=== PATIENT | female | born 1940 | race Caucasian/White ===

== ENCOUNTER 2024-01-28 09:52 | Outpatient (CLI) | payer MEDICARE, SELFPAY ==
[2024-01-28] VITALS (7 sets, daily range): BP systolic 127; BP diastolic 84; PULSE 65; RESP 17; TEMP 36.7; O2SAT 95–97
--- NOTE | 2024-01-28 06:00 | DI.RAD_ITS ---
Exam(s) XR PAIN CLINIC FLUORO JOINT IN EXAM: XR PAIN CLINIC FLUORO JOINT IN CLINICAL HISTORY: DX: Left Knee Osteoarthritis TECHNIQUE: 2D and realtime digital imaging was performed. CONTRAST MATERIAL: Refer to procedure report. COMPARISON: No exams were available for comparison FINDINGS: Fluoroscopy was provided for Dr. Vallejo during the performance of a left genicular nerve block. Jerica wolf refer to the procedure report for complete details. Ka,r=1.33 mGy IMPRESSION: RADIATION DOSE DELIVERED: 0.0 0.0 0
--- NOTE | 2024-01-28 06:00 | DI.RAD_ITS ---
Exam(s) XR PAIN CLINIC FLUORO JOINT IN EXAM: XR PAIN CLINIC FLUORO JOINT IN CLINICAL HISTORY: DX: Right Knee Osteoarthritis TECHNIQUE: 2D and realtime digital imaging was performed. CONTRAST MATERIAL: Refer to procedure report. COMPARISON: No exams were available for comparison FINDINGS: Fluoroscopy was provided for Dr. Vallejo during the performance of a right genicular nerve block. Plea se refer to the procedure report for complete details. Ka,r=2.1 mGy IMPRESSION: RADIATION DOSE DELIVERED: 0.0 0.0 0
[2024-01-28] MEDS: Bupivacaine 0.5% Pres-Free 10 ML VIAL IJ (11:14)
[2024-01-28] MEDS: Omnipaque 240 MG/ML 50 ML BTL IJ (11:14)
[2024-01-28] MEDS: Nerve Block Tray 1 EACH MC (11:15)
--- NOTE | 2024-01-28 12:43 | PDOC.PAIN_ITS ---
Date of service: 01/28/24 Time of Service: 12:43 Pain Managment Procedure Note Procedure Note Procedure Note: PROCEDURE NOTE BILATERAL GENICULAR NERVE BLOCKS Date of Service: January 28, 2024 Patient: Reyna Oneal Provider: Colt Vallejo DO, MPH Reynacharisse Oneal has been [facility] for Bilateral genicular nerve block. Pre-operative diagnosis: Pain in left knee M25.562 and Pain in right knee M25.561 Post-operative diagnosis: Same Pre-Procedure Pain: VAS=9/10 -> to both knees COMMENTS: She was previously evaluated in the office. PROCEDURE: 1. Block of the Superolateral genicular branch from the vastus lateralis 2. Block of the Superomedial genicular branch from the vastus medialis 3. Block of the Inferomedial genicular branch from the saphenous nerve 4. Block of the Terminal branch of the nerve vastus intermedius Reyna was interviewed and the medical record reviewed. There were no medical, pharmacologic, radiographic or other structural contraindications to attempting fluoroscopically guided bilateral genicular nerve blocks. Risks and potential side effects as well as potential benefit of the procedure were reviewed with Reyna Oneal , and the patient's voiced concerns were addressed. After I believed that the patient was completely informed, the printed consent form was signed. Standard time-out procedure was performed. After a thorough Chlorhexadine preparation of the skin and draping the skin entry points for approaching Left superolateral genicular nerve, the superomedial genicular nerve, nerve of the vastus intermedius and the inferomedial genicular was identified under the most advantageous fluoroscopic view and marked. Next, 3.5 25G spinal needle was advanced to os at the loca tion of the specific nerve root using fluoroscopic guidance. Next 0.5 cc of 0.5% Bupivacain was injected at each site. This entire procedure was then completed the same on the right. There was no unusual discomfort expressed by Reyna. The needles were withdrawn without difficulty. Reyna was observed and was without hemodynamic, neurologic, or allergic reactions.? Fluoroscopic images were digitally archived. Reyna's vital signs were stable throughout the procedure and were as recorded in the docflowsheet by the nursing staff. If given, dosages of intravenous d rugs for anxiolysis and analgesia were documented in JUL. Follow up plans and appointments were discussed. Reyna was instructed to keep careful note of how the usual pain was modified by these injections. Specifically, Reyna was asked to keep a pain diary for the next 4 hours using a numeric pain scale of 0-10 and report these results. Post procedure instruction was given as documented in nursing documentation and having met discharge criteria, Reyna was [facility] from the [facility]. COMMENTS: No apparent complications. Post-procedure pain: VAS= 0/10 on the left and 2/10 on the right. Reyna will call back with 0-4 hour post-procedure pain scores. I personally completed the entire procedure. COLT VALLEJO DO, MPH ABPM&R - Subspecialty board certification in Pain Medicine [facility]
== END 2024-01-28 09:53 | disposition home or self-care (01) ==
LOC: PC 09:55
PROVIDERS: Visit Provider Preventive Medicine Occupational Medicine
DX: M25.561 Pain in right knee (principal); M25.562 Pain in left knee
CPT/HCPCS: 64454; 77002; J0665; Q9967

== ENCOUNTER 2024-03-11 11:16 | Outpatient (CLI) | payer MEDICARE, SELFPAY ==
[2024-03-11] VITALS (7 sets, daily range): BP systolic 114–143; BP diastolic 64–79; PULSE 63–74; RESP 15–20; TEMP 36.1; O2SAT 93–98
[2024-03-11] MEDS: fentaNYL 100 MCG/2 ML VIAL IVP ×2 (12:15→12:20)
[2024-03-11] MEDS: Normal Saline Flush 10 ML SYR IVP ×2 (12:18→12:54)
[2024-03-11] MEDS: Midazolam 2 MG/2 ML VIAL IVP (12:20)
--- NOTE | 2024-03-11 12:50 | PDOC.PAIN_ITS ---
Date of service: 03/11/24 Time of Service: 12:50 Pain Managment Procedure Note Procedure Note Procedure Note: PROCEDURE NOTE RIGHT GENICULAR NERVE RADIOFREQUENCY ABLATION Date of Service: March 11, 2024 Patient: Reyna Oneal Provider: Dayanna Echeverria DO, MPH Reyna Oneal has been referred to the [facility] for Right genicular nerve radiofrequency ablation with the [employer] ([employer]s machine. Pre-operative diagnosis: Pain in right knee M25.561 Post-operative diagnosis: Same Pre-Procedure Pain: VAS=7/10 Comments: Previous genicular nerve blocks to the Right knee. PROCEDURE: 1. Superolateral genicular branch from the vastus lateralis 2. Superomedial genicular branch from the vastus medialis 3. Inferomedial genicular branch from the saphenous nerve 4. Terminal branch of the nerve vastus intermedius Reyna was interviewed and the medical record reviewed. There were no medical, pharmacologic, radiographic or other structural contraindications to attempting fluoroscopically guided Right genicular nerve radiofrequency ablation. Risks and potential side effects as well as potential benefit of the procedure were reviewed with Reyna Oneal , and the patient's voiced concerns were addressed. After I believed that the patient was completely informed, the printed consent form was signed. Standard time-out procedure was performed. Reyna Oneal was brought into brought to the procedure room and placed on the fluoroscopy table in a comfortable supine position and automated blood pressure cuff and pulse oximeter applied. A grounding pad was placed on the right ankle. The place for needle placement was obtained by manual palpation with radiographic confirmation. The skin entry points for approaching Right superolateral genicular nerve, the superomedial genicular nerve, nerve of the vastus intermedius and the inferomedial genicular was identified under the most advantageous fluoroscopic view and marked. Following thorough Chlorhexadine preparation of the skin and draping, 1% lidocaine infiltration of the skin entry point and subcutaneous tissues was accomplished using a 1.5 25G needle. Next, the 17G 50 mm radiofrequency cannula needle with a 4mm active tip was advanced to os at the location of the specific nerve roots (4) using fluoroscopic guidance. Next, motor testing was performed and no abnormal findings were found. Next, 1 cc of 2% Lidocaine was injected at each site after negative aspiration. The lesion was then created with 80 degrees Celsius for 2 minutes and 30 seconds each. 1/4 cc of Depo-Medrol (40 mg/cc) was then injected at each site followed by 1 cc of 0.5% Bupivacaine as the needle was withdrawn. There was no unusual discomfort expressed by Reyna. The needles were withdrawn without difficulty. Reyna was observed and was without hemodynamic, neurologic, or allergic reactions.? Fluoroscopic images were digitally archived. Reyna's vital signs were stable throughout the procedure and were as recorded in the docflowsheet by the nursing staff. If given, dosages of intravenous drugs for anxiolysis and analgesia were documented in MAR. POST PROCEDURE EVALUATION: IMPRESSION: 1. Medication given is documented in the MAR 2. Follow up plan: Reyna to contact [facility] as needed. This procedure may be repeated if the patient achieves at least 50% improvement in pain and/or function for at least 6 months. 3. Estimated Blood Loss: <5ml 4. Fluoroscopy time: Documented in the EMR Follow up plans and appointments were discussed with Reyna. Post procedure instruction was given as documented in nursing documentation and having met discharge criteria, Reyna was [facility] from the [facility]. COMMENTS: No apparent complications. Post-procedure pain: VAS= 0/10. Valenzuela WJ1, Soha SJ, Farhad JG, Manjeet JG, Lencho VICTOR, Park PH, David JW. Radiofrequency treatment relieves chronic knee osteoarthritis pain: a double-blind randomized controlled trial. Pain. 2010;152(3):481-7. doi: 10.1016/j.pain.2010.09.029. Giana S1, Zak ON2, Karin Y3, ?zl?doug P2, Trino U1, Marvel ?m?rl? I. Which one is more effective for the clinical treatment of chronic pain in knee osteoarthritis: radiofrequency neurotomy of the genicular nerves or intra- articular injection? Int J Rheum Dis. 2016 Dec 14. I personally completed the entire procedure. DAYANNA ECHEVERRIA DO, MPH ABPM[employer]R - Subspecialty board certification in Pain Medicine [facility]
[2024-03-11] MEDS: Nerve Block Tray 1 EACH MC (12:55)
[2024-03-11] MEDS: Bupivacaine 0.5% Pres-Free 30 ML VIAL IJ (13:03)
[2024-03-11] MEDS: Lidocaine 2% Pres-Free 5 ML VIAL (13:04)
[2024-03-11] MEDS: methylPREDNISolone ACETATE 40 MG/ML VIAL IJ (13:06)
--- NOTE | 2024-03-11 13:45 | DI.RAD_ITS ---
Exam(s) XR PAIN CLINIC FLUORO JOINT IN EXAM: XR PAIN CLINIC FLUORO JOINT IN CLINICAL HISTORY: DX: Right knee Osteoarthritis TECHNIQUE: 2D and realtime digital imaging was performed. CONTRAST MATERIAL: Refer to procedure report. COMPARISON: No exams were available for comparison FINDINGS: Fluoroscopy was provided for Dr. Vallejo during the performance of a right genicular radiofrequency abl ation. Please refer to the procedure report for complete details. Ka,r=2.94 mGy IMPRESSION: RADIATION DOSE DELIVERED: 0.0 0.0 0
== END 2024-03-11 11:17 | disposition home or self-care (01) ==
LOC: PC 11:18
PROVIDERS: Visit Provider Preventive Medicine Occupational Medicine
DX: M17.11 Unilateral primary osteoarthritis, right knee (principal); M25.561 Pain in right knee
CPT/HCPCS: 64624; 77002; J0665; J1010; J2250; J3010